=== PATIENT | male | born 1985 | race Caucasian/White ===

== ENCOUNTER 2020-12-09 14:26 | Emergency (ER) | payer OTHER ==
[2020-12-15 08:41] LABS: SARS-CoV-2 NAA NOT DETECTED
== END 2020-12-09 15:24 | disposition home or self-care (01) ==
LOC: JVIRT 14:26
DX: R09.81 Nasal congestion (principal); Z20.822 Contact with and (suspected) exposure to COVID-19
CPT/HCPCS: C9803; Q3014-GT; U0003; U0005

== ENCOUNTER 2023-08-30 08:54 | Inpatient (IN) | payer BC ==
[2023-08-30 11:01] LABS: BASO % 0.2 % (0-2.0); EOS % 1.6 % (0-4.5); HEMATOCRIT 44.7 % (35.4-49); HEMOGLOBIN 15.6 GM/dL (11.7-16.9); LYMPH % 14.7 % (8-40); MCH 33.3 pg (25.7-33.7); MCHC 34.8 g/dl (32.0-35.9); MEAN CELL VOLUME 95.8 fl (80-96); MEAN PLT VOLUME 8.2 fl (7.5-11.1); MONO % 7.7 % (3.8-10.2); NEUT % 75.8 % (42.8-82.8); PLATELET COUNT 199 10^3/uL (134-434); RBC 4.67 M/mm3 (4.00-5.60); RDW 12.8 % (11.9-15.9); WHITE BLOOD COUNT 9.8 K/mm3 (4.0-10.0)
[2023-08-30] MEDS ORDERED: AMPICILLIN NA/SULBACTAM NA 3 GM/100 ML BAG IVPB ONE (11:03)
[2023-08-30] MEDS ORDERED: ACETAMINOPHEN INJECTION 100 ML IVPB ONE (11:03)
[2023-08-30] MEDS: ACETAMINOPHEN 1000 MG/100 ML BAG IVPB ONE (11:08)
[2023-08-30] MEDS: AMPICILLIN NA/SULBACTAM NA 3 GM in DEXTROSE 5%-WATER 100 ML IVPB ONE (11:15)
[2023-08-30 11:25] LABS: POTASSIUM 4.7 mmol/L (3.5-5.1)
[2023-08-30 11:27] LABS: BLOOD UREA NITROGEN 14.4 mg/dL (7-18)
[2023-08-30 11:30] LABS: CREATININE 0.9 mg/dL (0.55-1.3)
[2023-08-30 11:32] LABS: BILIRUBIN,TOTAL 0.8 mg/dL (0.2-1); TOT PROT 7.2 g/dl (6.4-8.2)
[2023-08-30 11:34] LABS: ACTIVATED PTT 34.6 SECONDS (25.2-36.5); INR 1.02 (0.83-1.09); PROTHROMBIN TIME (PATIENT) 11.5 SEC (9.7-13.0)
[2023-08-30] MEDS ORDERED: KETOROLAC TROMETHAMINE 30 MG/1 ML VIAL ONE (13:15)
[2023-08-30] MEDS: KETOROLAC TROMETHAMINE 15 MG/ML VIAL IVPUSH ONE (13:25)
[2023-08-30] MEDS ORDERED: ACETAMINOPHEN 325 MG TABLET (FP) PO PRN ×2 (14:35→15:18)
[2023-08-30] MEDS ORDERED: VANCOMYCIN 1 GRAM (PRE-DOCKED) 1,000 MG/250 ML BAG IVPB ONE (14:39)
[2023-08-30] MEDS ORDERED: PIPERACILLIN/TAZOB 4.5 GM 4.5 GM/100 ML BAG IVPB ONE (14:39)
[2023-08-30] MEDS: PIPERACILLIN/TAZOB 4.5 GM 4.5 GM in DEXTROSE 5%-WATER 100 ML IVPB ONE (14:47)
[2023-08-30] MEDS ORDERED: KETOROLAC TROMETHAMINE 15 MG/ML VIAL IVPUSH PRN (15:18)
[2023-08-30] MEDS ORDERED: VANCOMYCIN/WATER 1250 MG 1,250 MG/250 ML BAG IVPB SCH (15:30)
[2023-08-30 16:28] VITALS: BMI 29.1
[2023-08-30] MEDS: VANCOMYCIN/WATER 1250 MG 1,250 MG/250 ML BAG IVPB ONE (16:56)
[2023-08-30] MEDS ORDERED: PIPERACILLIN/TAZOB 3.375 GM 3.375 GM in DEXTROSE 5%-WATER - 50 ML IVPB SCH (18:00)
[2023-08-30] MEDS: MUPIROCIN 2% TOPICAL OINTMENT 22 GM TUBE TP SCH (21:10)
[2023-08-30] MEDS: PIPERACILLIN/TAZOB 4.5 GM 4.5 GM in DEXTROSE 5%-WATER 100 ML IVPB SCH (22:51)
[2023-08-31] MEDS: VANCOMYCIN/WATER 1250 MG 1,250 MG/250 ML BAG IVPB SCH (02:35)
[2023-08-31] MEDS ORDERED: VANCOMYCIN/WATER 1250 MG 1,250 MG/250 ML BAG IVPB SCH ×3 (03:30→10:00)
[2023-08-31 07:52] LABS: HEMATOCRIT 41.2 % (35.4-49); HEMOGLOBIN 14.5 GM/dL (11.7-16.9); MCH 33.5 pg (25.7-33.7); MCHC 35.2 g/dl (32.0-35.9); MEAN CELL VOLUME 95.2 fl (80-96); MEAN PLT VOLUME 8.1 fl (7.5-11.1); PLATELET COUNT 197 10^3/uL (134-434); RBC 4.33 M/mm3 (4.00-5.60); WHITE BLOOD COUNT 8.4 K/mm3 (4.0-10.0)
[2023-08-31 08:02] LABS: POTASSIUM 4.3 mmol/L (3.5-5.1)
[2023-08-31 08:07] LABS: ALBUMIN 3.6 g/dl (3.4-5.0); BLOOD UREA NITROGEN 16.7 mg/dL (7-18); CALCIUM 8.4 mg/dL (8.5-10.1)
[2023-08-31 08:12] LABS: BILIRUBIN,TOTAL 0.6 mg/dL (0.2-1); TOT PROT 6.5 g/dl (6.4-8.2)
[2023-08-31] MEDS: TENOFOVIR DISOPROXIL PO SCH (09:06)
[2023-08-31] MEDS: [UNRECOGNIZED DRUG - OTHER] PO SCH (09:06)
[2023-08-31] MEDS: LAMIVUDINE PO SCH (09:06)
[2023-08-31] MEDS: ENOXAPARIN NA (PORCINE) 40 MG/0.4 ML DISP.SYRIN SQ SCH (09:08)
[2023-08-31] MEDS: VANCOMYCIN 1,000 MG in DEXTROSE 5%-WATER - 250 ML IVPB ONE (12:25)
[2023-09-01] MEDS: PATIENT'S OWN MEDICATION (NON-FORMULARY) (Doravirine/Lamivu/Tenofov Diso [Delstrigo 100-30 PO SCH (06:21)
[2023-09-01] MEDS: CHLORHEXIDINE GLUCONATE 4% CLEANSER FOR DECOLONIZATION TP SCH (12:14)
[2023-09-01] MEDS: ONDANSETRON 4 MG/2 ML VIAL IVPUSH PRN (16:53)
[2023-09-02 08:23] LABS: POTASSIUM 4.9 mmol/L (3.5-5.1)
[2023-09-02 08:27] LABS: BLOOD UREA NITROGEN 10.1 mg/dL (7-18)
[2023-09-02 08:30] LABS: CREATININE 0.8 mg/dL (0.55-1.3)
[2023-09-02 08:33] VITALS: BP 126/84; PULSE 71; RESP 18; TEMP 98.7
[2023-09-02 08:41] LABS: BASO % 0.8 % (0-2.0); EOS % 5.3 % (0-4.5); HEMATOCRIT 42.3 % (35.4-49); MCH 33.7 pg (25.7-33.7); MCHC 35.4 g/dl (32.0-35.9); MEAN CELL VOLUME 95.2 fl (80-96); MEAN PLT VOLUME 7.8 fl (7.5-11.1); MONO % 8.1 % (3.8-10.2); NEUT % 54.8 % (42.8-82.8); PLATELET COUNT 229 10^3/uL (134-434); RBC 4.45 M/mm3 (4.00-5.60); WHITE BLOOD COUNT 6.3 K/mm3 (4.0-10.0)
== END 2023-09-02 10:04 | disposition home or self-care (01) | DRG 155 ==
LOC: JER 08:54 → JERBED 14:04 → INTOOBSV 14:04 → UNDOADMOB 14:04 → JERBED 14:35 → J6S 15:35 → OBSVTOIN 08-31 10:27
PROVIDERS: ADMIT Internal Medicine; ATTEND Internal Medicine
DX: J34.89 Other specified disorders of nose and nasal sinuses (principal); L03.211 Cellulitis of face; Z21 Asymptomatic human immunodeficiency virus [HIV] infection status; K04.7 Periapical abscess without sinus; B95.62 Methicillin resistant Staphylococcus aureus infection as the cause of diseases classified elsewhere
CPT/HCPCS: 36415; 70487-TC; 80048; 80053; 85025; 85027; 85610; 85730; 86850; 86900; 86901; 87040; 87070; 87186; 93005; 93010; 99285-25; G0378; G0480; J0131; Q9967